=== PATIENT | female | born 1950 | race Caucasian/White ===

== ENCOUNTER 2016-10-01 10:56 | Emergency (ER) | payer MEDICARE, MEDICAID ==
[~2016-10-01] VITALS: Ht 162.6 cm; Wt 50.0 kg
[2016-10-01 11:00] VITALS: BP 148/92
== END 2016-10-01 14:17 | disposition left against medical advice (07) ==
LOC: ER 11:17
DX: Z53.21 Procedure and treatment not carried out due to patient leaving prior to being seen by health care provider (principal); E11.9 Type 2 diabetes mellitus without complications; I10 Essential (primary) hypertension; Z88.3 Allergy status to other anti-infective agents; Z86.73 Personal history of transient ischemic attack (TIA), and cerebral infarction without residual deficits